=== PATIENT | female | born 1945 | race Two or more races ===

== ENCOUNTER 2017-12-16 00:08 | Emergency (ER) | payer MEDICARE, MEDICAID ==
[~2017-12-16] VITALS: Ht 157.5 cm; Wt 54.4 kg
[~2017-12-16 00:08] MED LIST: NITR-48; PROG100S
[2017-12-16] MEDS ORDERED: ONDANSETRON HCL 4 MG/2 ML VIAL IV ONE (00:30)
[2017-12-16] MEDS ORDERED: MORPHINE SULFATE 4 MG/ML SYR/VIAL IV ONE (00:30)
[2017-12-16] MEDS ORDERED: DEXAMETHASONE SOD PHOS 10MG/1ML VIAL INJ IV ONE (00:30)
[2017-12-16] MEDS: MANNITOL 20% SOLN 100 gm/500ml 250 ML IV ONE ×2 (00:30→00:58)
[2017-12-16] MEDS ORDERED: LEVETIRACETAM INJ 1,000 MG in D5W 5% 100 ML IV ONE (00:30)
[2017-12-16] MEDS ORDERED: MANNITOL FTV 25% 12.5 GM/50 ML 0 ML IV ONE (00:36)
[2017-12-16] MEDS ORDERED: DEXAMETHASONE SOD PHOS 4 MG/1ML SDV INJ ONE (00:36)
[2017-12-16] MEDS ORDERED: LEVETIRACETAM 500 MG/5ML INJ IV ONE (00:49)
[2017-12-16] MEDS ORDERED: MANNITOL 20 % (20GM/100ML) 500 ML IV ONE (00:49)
[2017-12-16 01:44] VITALS: BP 162/76
== END 2017-12-16 01:59 | disposition short-term general hospital (02) ==
LOC: EDBD 00:08 → ER 00:16
DX: S06.6X0A Traumatic subarachnoid hemorrhage without loss of consciousness, initial encounter (principal); S00.03XA Contusion of scalp, initial encounter; S06.5X0A Traumatic subdural hemorrhage without loss of consciousness, initial encounter; W18.39XA Other fall on same level, initial encounter; Y93.89 Activity, other specified; Y92.89 Other specified places as the place of occurrence of the external cause; Y99.8 Other external cause status
CPT/HCPCS: 70450; 82962; 93005; 96365; 96368; 96375; 99285; J1100; J1953; J2270; J2405; J7060